=== PATIENT | male | born 1980 | race Caucasian/White ===

== ENCOUNTER 2020-05-17 18:21 | Emergency (ER) | payer OTHER ==
[2020-05-17 18:33] VITALS: BP 128/85; BMI 41.8
[2020-05-17] MEDS ORDERED: ACETAMINOPHEN 500 MG TABLET (FP) PO ONE (18:33)
[2020-05-17] MEDS ORDERED: ACETAMINOPHEN 500 MG TABLET (FP) ONE (18:36)
[2020-05-17 19:34] LABS: BASO % 0.9 % (0-2.0); EOS % 0.4 % (0-4.5); HEMATOCRIT 51.4 % (35.4-49); HEMOGLOBIN 16.7 GM/dl (11.7-16.9); LYMPH % 24.7 % (8-40); MCH 29.3 pg (25.7-33.7); MCHC 32.5 g/dl (32.0-35.9); MEAN CELL VOLUME 90.3 fl (80-96); MEAN PLT VOLUME 10.1 fl (7.5-11.1); MONO % 8.8 % (3.8-10.2); NEUT % 65.2 % (42.8-82.8); PLATELET COUNT 171 K/MM3 (134-434); RBC 5.69 M/mm3 (4.00-5.60); RDW 11.6 % (11.9-15.9); WHITE BLOOD COUNT 4.8 K/mm3 (4.0-10.8)
[2020-05-17 19:46] LABS: ACTIVATED PTT 31.5 SECONDS (25.2-36.5)
[2020-05-17 19:50] LABS: INR 1.26 (0.82-1.09); PROTHROMBIN TIME (PATIENT) 13.9 SEC (10.2-13.0)
[2020-05-17 19:54] LABS: ALBUMIN 3.9 g/dl (3.4-5.0); BILIRUBIN,TOTAL 0.9 mg/dl (0.2-1); CALCIUM 9.2 mg/dl (8.5-10); CREATININE 1.3 mg/dl (0.55-1.3); POTASSIUM 3.9 mmol/L (3.5-5.1); TOT PROT 7.8 g/dl (6.4-8.2)
[2020-05-17 20:03] VITALS: PULSE 90; TEMP 100.8
[2020-05-17 20:26] LABS: ERYTHROCYTE SEDIMENTATION RATE 23 mm/hr (0-10)
[2020-05-17 20:51] LABS: VENOUS BASE EXCESS -0.6 mmol/L (-2-2); VENOUS O2 SATURATION 78.2 % (70-80); VENOUS PCO2 51.8 mmHg (38-52); VENOUS PH 7.326 (7.310-7.410)
[2020-05-17] MEDS ORDERED: DEXAMETHASONE LIQUID 0.5 MG/5 ML PO ONE (23:47)
[2020-05-17] MEDS ORDERED: DEXAMETHASONE 4 MG TABLET (FP) ONE (23:51)
== END 2020-05-18 01:04 | disposition left against medical advice (07) ==
LOC: FER 18:21
DX: U07.1 COVID-19 (principal); R50.9 Fever, unspecified; R05 Cough
CPT/HCPCS: 36415; 71045-TC-FY; 80053; 82550; 82553; 82728; 82803; 83605; 83615; 84484; 85025; 85379; 85610; 85651; 85730; 86140; 93005; 99285-25; C9803; U0003